=== PATIENT | male | born 1985 | race American Indian/Alaskan Native ===

== ENCOUNTER 2018-06-22 11:08 | Emergency (ER) | payer BC ==
--- NOTE | 2018-06-22 11:34 | Emergency Department Report ---
Blank Doc - Documentation Documentation: This is a 33-year-old male that presents with sore throat, ear pain, and heada mesha. Denies any cough. This initial assessment diagnostic orders/clinical plan/treatment(s) is/are subject to change based on patient's health status, clinical progression and re- assessment by fellow clinical providers in the ED. Further treatment and workup at subsequent clinical providers discretion. Patient/guardians urged not to elope from ED s their condition may be serious if not clinically assessed and managed. Initial orders include: 1-Patient sent to [facility] for further evaluation and treatment 2- strep swab
--- NOTE | 2018-06-22 15:40 | Emergency Department Report ---
HPI - General Chief Complaint: Sore Throat Time Seen by Provider: 06/22/18 11:33 - HPI HPI: Patient is a 33-year-old male who presents to ED r complaining of throat pain 4 days. Patient describes pain as throbbing in nature, 8 out of 10 intensity, nonradiating, localized to his throat. Admits pain with swallowing and eating. Patient denies nausea/vomiting/abdominal pain/shortness of breath/chest pain/headache. ED Past Medical Hx - Past Medical History Previous Medical History?: No - Surgical History Past Surgical History?: No - Social History Smoking Status: Current Every Day Smoker Substance Use Type: None - Medications Home Medications: Home Medications Medication Instructions Recorded Confirmed Last Taken Type Ibuprofen [Motrin] 800 mg PO Q8H PRN #20 tablet 01/29/14 Unknown Rx EPINEPHrine [Epipen] 0.3 mg IJ ONCE PRN #1 auto.injct 03/26/18 Unknown Rx Famotidine 20 mg PO BID 4 Days #8 tablet 03/26/18 Unknown Rx diphenhydrAMINE [Benadryl CAP] 25 mg PO Q6HR 4 Days #16 capsule 03/26/18 Unknown Rx predniSONE [Deltasone] 3 tab PO QDAY 4 Days #12 tab 03/26/18 Unknown Rx Amoxicillin [Amoxicillin TAB] 875 mg PO BID #14 tablet 06/22/18 Unknown Rx Ibuprofen [Motrin] 800 mg PO Q8HR #30 tab 06/22/18 Unknown Rx Nystas/Diphen/Xyl Visc/Mylanta 15 ml MM Q4H #120 ml 06/22/18 Unknown Rx [Magic Mouthwash] ED Review of Systems ROS: Stated complaint: FLU LIKE SYMPTOMS Other details as noted in HPI Comment: All other systems reviewed and negative Physical Exam - Physical Exam Vital Signs: Vital Signs 06/22/18 11:34 Temperature 98 F Pulse Rate 87 Respiratory 16 Rate Blood Pressure 113/84 O2 Sat by Pulse 98 Oximetry Physical Exam: GENERAL: Alert and oriented x3, no apparent distress, Normal Gait, atraumatic. HEAD: Head is normocephalic and a-traumatic. EYES: Extra ocular muscles are intact. Pupils are equal, round, and reactive to light and accommodation. EARS: symetrical, atraumatic, non tender, ear canal clear and moderate cerumen, tympanic membrance non inflamed. gross auditory nml bilaterally. NOSE: Nose symetrical, Nontender,Nares appeared normal. MOUTH:Mouth is well hydrated and without lesions. Tonsils mildly erythematous but not swollen, Uvula midline, Tongue not elevated. Mucous membranes are moist. Posterior pharynx clear, no exudate or lesions. Patent airways. NECK: Supple. Non edematous, No carotid bruits. No lymphadenopathy or thyromegaly. No C-spine tenderness SKIN: Warm and dry, No lesions, No ulceration or induration present. ED Course Vital Signs 06/22/18 11:34 Temperature 98 F Pulse Rate 87 Respiratory 16 Rate Blood Pressure 113/84 O2 Sat by Pulse 98 Oximetry ED Medical Decision Making - Medical Decision Making 33-year-old male presents with tonsillitis/pharyngitis. ED course: Rapid strep tests ordered rapid strep test negative Patient received 1 dose of Tylenol, 60 mg of prednisone. It was no fever in the ED Vital signs stable patient is in no acute or respiratory distress. Discussed the patient that side is "the is contagious and to limit sharing spoons and such. Discussed with patient follow-up with primary care physician. Patient verbally states he understands and will comply to follow-up. Critical care attestation.: If time is entered above; I have spent that time in minutes in the direct care of this critically ill patient, excluding procedure time. ED Disposition Clinical Impression: Tonsillitis Disposition: -01 TO HOME OR SELFCARE Is pt being admited?: No Does the pt Need Aspirin: No Condition: Stable Instructions: Pharyngitis (ED), Tonsillitis (ED) Additional Instructions: Make sure to follow up with the primary care physician as discussed. Take all your medications as you've been prescribed. If you have any worsening symptoms or develop new symptoms please return to ED immediately. Prescriptions: Amoxicillin [Amoxicillin TAB] 875 mg PO BID #14 tablet Ibuprofen [Motrin] 800 mg PO Q8HR #30 tab Nystas/Diphen/Xyl Visc/Mylanta [Magic Mouthwash] 15 ml MM Q4H #120 ml Referrals: JJ BELL MD [Primary Care Provider] - 3-5 Days Forms: Work/School Release Form(ED) Time of Disposition: 15:41
[2018-06-22] MEDS ORDERED: DELTASONE PO ONE (15:41)
[2018-06-22 16:04] VITALS: BP 126/82
== END 2018-06-22 16:06 | disposition home or self-care (01) ==
LOC: ED 11:08
DX: J03.90 Acute tonsillitis, unspecified (principal); F17.200 Nicotine dependence, unspecified, uncomplicated
CPT/HCPCS: 87116; 87430; 99283; J7512